=== PATIENT | female | born 1945 | race Caucasian/White ===

== ENCOUNTER 2016-07-06 14:13 | Emergency (ER) | payer OTHER ==
[~2016-07-06] VITALS: Ht 162.6 cm; Wt 62.2 kg
[~2016-07-06 14:13] MED LIST: CELEXA10 MG PO; COLACE100 MG PO; CYANOCOBALAM1000 MCG PO; FLAXSEED OIL1000 M4 PO; LEVO-T112 MCG PO; LEVOTHYROXINE100 MCG PO; LOTENSIN20 MG PO; MAGNESIUM250 MG PO; MAGOX 400400 MG PO; MOTRIN600 MG PO; NORVASC5 MG PO; OCUVITE TABLET1 EACH PO; POTASSIUM-9999 MG PO; PRILOSEC40 MG PO; RESTASIS 01 DROP/0.4 BOTH EYES; RESTORIL30 MG PO; SUPER CALCIUM600 MG PO; VITAMIN D31000 UNI2 PO; [UNRECOGNIZED DRUG - OTHER] PO
[2016-07-06 16:53] LABS: HEMATOCRIT 37.9 % (36.0-46.0); MCH 27.5 PG (29.0-34.0); MCHC 31.7 G/DL (30.0-36.0); MCV 86.7 FL (83-99); PLATELET COUNT 251 K/uL (156-360); RBC DIS.WIDTH-CV 12.9 % (11.8-14.6); RBC DIS.WIDTH-SD 40.7 % (39-53); RED BLOOD COUNT 4.37 M/uL (3.80-5.20); WHITE BLOOD COUNT 6.8 K/uL (4.1-10.2)
[2016-07-06 17:04] LABS: CHLORIDE 106 mEq/L (99-109); SODIUM 144 mEq/L (136-147)
[2016-07-06 17:06] LABS: GLUCOSE 98 mg/dL (70-99)
[2016-07-06 17:08] LABS: ANION GAP 11 MEQ/L (2-14); TOTAL BILIRUBIN 0.4 mg/dL (0.0-1.0)
[2016-07-06 17:10] LABS: ALKALINE PHOSPHATASE 65 IU/L (3-129); GFR ESTIMATE (CALCULATED) > 59 mL/min/
[2016-07-06 17:11] LABS: UREA NITROGEN (BUN) 18 mg/dL (9-23)
[2016-07-06 17:41] LABS: ADD MIUA? YES; BILIRUBIN NEGATIVE; BLOOD MODERATE; COLOR YELLOW ((YELLOW)); GLUCOSE (STRIP) NEGATIVE; KETONES NEGATIVE; LEUKOCYTES LARGE; NITRITE NEGATIVE; PROTEIN (STRIP) NEGATIVE; SPECIFIC GRAVITY 1.011 (1.000-1.030); UROBILINOGEN 0.2 MG/DL (0.2-1.0)
[2016-07-06 17:48] VITALS: BP 183/83
[2016-07-06 17:56] LABS: EPITHELIAL CELLS RARE /HPF; MUCUS TRACE /LPF; RED BLOOD CELLS 0-5 /HPF (0-5); WHITE BLOOD CELLS 0-5 /HPF (0-5)
[2016-07-06 18:11] LABS: BACTERIA 4+ /HPF
== END 2016-07-06 17:48 | disposition home or self-care (01) ==
LOC: EME 14:13
PROVIDERS: Nurse Practitioner Family
PROC: 0HQ1XZZ Repair Face Skin, External Approach (ICD-10-PCS; principal; 2016-07-06)
DX: S01.81XA Laceration without foreign body of other part of head, initial encounter (principal); I10 Essential (primary) hypertension; W18.30XA Fall on same level, unspecified, initial encounter; Y93.E3 Activity, vacuuming; Z85.07 Personal history of malignant neoplasm of pancreas; Z87.891 Personal history of nicotine dependence
CPT/HCPCS: 70450; 72040; 80053; 81003; 85027; 99281; 99284

== ENCOUNTER 2016-07-23 17:06 | Emergency (ER) | payer OTHER ==
[~2016-07-23] VITALS: Ht 162.6 cm; Wt 64.3 kg
[2016-07-23 17:58] LABS: EOSINOPHIL (%) 0 % (0-5); IMMATURE GRANULOCYTE (%) 0.3 % (0.0-0.7); INSTRUMENT ABS NEUTROPHIL CT 7.6 K/uL; LYMPHOCYTE COUNT 0.6 K/uL (1.0-2.8); MCH 27.2 PG (29.0-34.0); MCHC 32.1 G/DL (30.0-36.0); MCV 84.6 FL (83-99); MEAN PLAT.VOLUME 11.1 uM^3 (9.5-12.4); MONOCYTE (%) 5.6 % (3-12); MONOCYTE COUNT 0.5 K/uL (0-0.8); NEUTROPHIL (%) 87.1 % (45-76); NEUTROPHIL COUNT 7.6 K/uL (1.8-6.4); PLATELET COUNT 187 K/uL (156-360); RBC DIS.WIDTH-SD 40.2 % (39-53); WHITE BLOOD COUNT 8.7 K/uL (4.1-10.2)
[2016-07-23 18:09] LABS: CHLORIDE 105 mEq/L (99-109); POTASSIUM 3.5 mEq/L (3.7-5.4); SODIUM 138 mEq/L (136-147)
[2016-07-23 18:11] LABS: GLUCOSE 91 mg/dL (70-99)
[2016-07-23 18:12] LABS: ANION GAP 11 MEQ/L (2-14)
[2016-07-23 18:15] LABS: GFR ESTIMATE (CALCULATED) > 59 mL/min/
[2016-07-23 18:16] LABS: UREA NITROGEN (BUN) 15 mg/dL (9-23)
[2016-07-23 19:56] VITALS: BP 164/94
== END 2016-07-23 19:57 | disposition left against medical advice (07) ==
LOC: EME 17:06
DX: R50.9 Fever, unspecified (principal); R51 Headache; M79.1 Myalgia; R04.0 Epistaxis; I10 Essential (primary) hypertension; Z87.891 Personal history of nicotine dependence
CPT/HCPCS: 80048; 81003; 83605; 85025; 99281; 99284

== ENCOUNTER 2017-08-13 12:44 | Emergency (ER) | payer OTHER ==
[~2017-08-13] VITALS: Ht 162.6 cm; Wt 66.7 kg
[2017-08-13 15:02] LABS: HEMATOCRIT 29.7 % (36.0-46.0); HEMOGLOBIN 9.9 G/DL (11.9-15.5); MCH 30.7 PG (29.0-34.0); MCHC 33.3 G/DL (30.0-36.0); MCV 92.2 FL (83-99); PLATELET COUNT 250 K/uL (156-360); RBC DIS.WIDTH-CV 14.5 % (11.8-14.6); RED BLOOD COUNT 3.22 M/uL (3.80-5.20); WHITE BLOOD COUNT 8.7 K/uL (4.1-10.2)
[2017-08-13 15:13] LABS: ALBUMIN 3.6 g/dL (3.2-4.8); CHLORIDE 108 mEq/L (99-109); POTASSIUM 3.9 mEq/L (3.7-5.4); SODIUM 143 mEq/L (136-147)
[2017-08-13 15:15] LABS: GLUCOSE 83 mg/dL (70-99); TOTAL PROTEIN 6.1 g/dL (6.4-8.3)
[2017-08-13 15:17] LABS: TOTAL BILIRUBIN 0.6 mg/dL (0.0-1.0)
[2017-08-13 15:19] LABS: ALKALINE PHOSPHATASE 75 IU/L (3-129); CREATININE 0.6 mg/dL (0.6-1.3); GFR ESTIMATE (CALCULATED) > 59 mL/min/
[2017-08-13 15:20] LABS: UREA NITROGEN (BUN) 12 mg/dL (9-23)
[2017-08-13 15:21] LABS: AST (GOT) 20 IU/L (2-34)
[2017-08-13 15:22] LABS: ALT (GPT) 20 IU/L (3-49); CREATINE KINASE 65 IU/L (1-294); TOTAL CK 65 IU/L (1-294)
[2017-08-13 15:28] LABS: CK-MB 3.3 ng/mL (0.0-4.9); CKMB RELATIVE INDEX 5.1 (0.0-3.9); TROP-I INTERPRETATION NEGATIVE; TROPONIN-I 0.09 ng/mL (0.0-0.30)
[2017-08-13] MEDS ORDERED: DEMADEX20 MG PO (17:58)
[2017-08-13 18:30] VITALS: BP 146/76
== END 2017-08-13 18:32 | disposition home or self-care (01) ==
LOC: EME 12:44
PROVIDERS: Emergency Medicine
DX: R06.02 Shortness of breath (principal); E87.70 Fluid overload, unspecified; Z95.2 Presence of prosthetic heart valve; J90 Pleural effusion, not elsewhere classified; D64.9 Anemia, unspecified; I10 Essential (primary) hypertension; Z87.891 Personal history of nicotine dependence; Z85.07 Personal history of malignant neoplasm of pancreas; Z90.49 Acquired absence of other specified parts of digestive tract; Z79.82 Long term (current) use of aspirin
CPT/HCPCS: 71046; 71275; 80053; 82550; 82553; 83880; 84484; 85027; 93005; 99281; 99284; J7030